=== PATIENT | female | born 1970 | race Two or more races ===

== ENCOUNTER → 2024-01-18 | Outpatient (CLI) | payer OTHER ==
[2024-01-18 11:18] LABS: Basophils # (auto) 0.1 10 ^3/uL (0-0.2); Basophils % (auto) 1.2 % (0.0-2.0); Eosinophils # (auto) 0.1 10 ^3/uL (0-0.8); Eosinophils % (auto) 0.8 % (0.0-7.0); Hematocrit 44.8 % (36.0-46.0); Lymphocytes # (auto) 3.1 10 ^3/uL (0.4-5.4); Lymphocytes % (auto) 44.5 % (10.0-50.0); Mean Corpuscular Hemoglobin 29.6 pg (28.0-32.0); Mean Corpuscular Hgb Conc. 33.5 g/dL (32.0-36.0); Mean Corpuscular Volume 88.4 fL (80.0-100.0); Monocytes # (auto) 0.4 10 ^3/uL (0-1.3); Monocytes % (auto) 5.7 % (0.0-12.0); Neutrophils # (auto) 3.4 10 ^3/uL (1.6-8.6); Neutrophils % (auto) 47.8 % (37.0-80.0); Nucleated Red Blood Cells % 0.1 %; Red Blood Cells 5.06 10^6/uL (4.0-5.20); Red Cell Distribution Width 12.7 % (11.8-14.3)
[2024-01-18 11:28] LABS: Urine Bacteria FEW /hpf (None Seen); Urine Blood Negative /uL (Negative); Urine Clarity Turbid (Clear); Urine Color Yellow (Yellow); Urine Mucus FEW (None Seen); Urine Protein, UAD 1+ (Negative); Urine Specific Gravity 1.047 (1.001-1.035); Urine Urobilinogen Normal (Negative); Urine WBC 35 /hpf (0 - 5); Urine pH 5.5 (5.0-9.0)
[2024-01-18 12:07] LABS: Alanine Aminotransferase 24 U/L (7-40); Alkaline Phosphatase 112 U/L (46-116); Amylase 66 U/L (30-118); Anion Gap 8 (5-15); BUN/Creatinine Ratio 10.3 (10.0-20.0); Blood Urea Nitrogen 7 mg/dL (9-23); Calcium 9.5 mg/dL (8.7-10.4); Carbon Dioxide 25 mmol/L (20-30); Chloride 104 mmol/L (98-107); Glucose 333 mg/dL (74-106); LDL Cholesterol 226 mg/dL (< 100); Potassium 4.2 mmol/L (3.5-5.1); Sodium 137 mmol/L (136-145); Triglycerides 135 mg/dL (< 150)
[2024-01-18 12:08] LABS: Albumin 4.2 g/dL (3.2-4.8); Aspartate Aminotransferase 11 U/L (13-40); Bilirubin, Total 0.7 mg/dL (0.2-1.0); Cholesterol 290 mg/dL (< 200); HDL Cholesterol 62 mg/dL (40-59); Total Protein 7.2 g/dL (5.7-8.2)
[2024-01-18 12:23] LABS: Erythrocyte Sedimentation Rate 13 mm/hr (0-20)
[2024-01-19 08:07] LABS: Complement C3 152 mg/dL (82-167); Rheumatoid Arthritis Factor 10.5 IU/mL (<14.0); Thyroid Peroxidase (TPO) Ab 22 IU/mL (0-34)
[2024-01-19 09:07] LABS: Anti-Nuclear Antibody Direct Negative (Negative); Anti-dsDNA Antibody <1 IU/mL (0-9); Antiscleroderma-70 Antibody <0.2 AI (0.0-0.9); RNP Antibody <0.2 AI (0.0-0.9); Sjogren's Anti-SS-A Antibody <0.2 AI (0.0-0.9); Sjogren's Anti-SS-B Antibody <0.2 AI (0.0-0.9); Smith Antibody <0.2 AI (0.0-0.9)
[2024-01-20 13:08] LABS: Actin (Smooth Muscle) Antibody 5 Units (0-19); Mitochondrial (M2) Antibody <20.0 Units (0.0-20.0)
== END | disposition home or self-care (01) ==
LOC: LAB 10:42
PROVIDERS: ATTEND Internal Medicine
DX: Z12.11 Encounter for screening for malignant neoplasm of colon (principal); R10.9 Unspecified abdominal pain; L93.0 Discoid lupus erythematosus
CPT/HCPCS: 36415; 80053; 80061; 81001; 82150; 83036; 84443; 85025; 85652; 86160; 86225; 86235; 86376; 86431

== ENCOUNTER → 2024-05-16 | Outpatient (CLI) | payer OTHER ==
[~2024-05-16] VITALS: Ht 160 cm; Wt 55.8 kg
[2024-05-16] MEDS: ADENOSINE 47 MG in GIVE UN-DILUTED 0 ML IV ONE (09:26)
--- NOTE | 2024-05-16 12:59 | DVHSR ---
APPROVED REPORT Exam: Nuclear Stress Test Indication: Cardiac Clearance Stress Tech: Rocio Reed BMI: 0 Medical History Medical History: DM, EF 55% Stress Test Details Stress Test: Pharmacological stress testing performed using 47 mg of Adenosine HR Resting HR: 77 bpmMax Heart Rate (APMHR): 164.518247 bpm Max HR Achieved: 101 bpmTarget HR (85% APMHR): 139.107246 bpm % of APMHR: 61.59 Recovery HR: 87 bpm BP Resting BP: 145/72 mmHg Recovery BP: 120/68 mmHg ECG Resting ECG: Sinus Rhythm Clinical Reason for Termination: Completed protocol Stress ECG Conclusion Resting ECG shows normal sinus rhythm. No dynamic EKG changes was noted to suggest ischemia. Resting images shows near homogeneous uptake of radioactive tracer throughout the myocardium without evidence of myocardial infarction. Stress images shows near homogeneous uptake of radioactive tracer throughout the myocardium without e vidence of myocardial ischemia. Well-preserved left ventricular systolic function at 69%. Impression: Negative stress for ischemia, low risk study. NM EXAM: Myocardial Perfusion REST/STRESS Imaging Protocol: Rest Tc-99m/Stress Tc-99m 1 day Resting Data Rest SPECT myocardial perfusion imaging was performed in supine position 60 minutes following the int ravenous injection of 12.3 mCi of Tc-99m Sestamibi. Time of rest injection: 0800 Time of rest imagin Administration Route: IV Administration Site: Right Arm Pharmacologic Stress Pharmacologic stress test was performed by injecting Adenosine mg IV push followed by the intravenou s injection of 30.0 mCi of Tc-99m Sestamibi. Time of stress injection: 0930 Time of stress imagin Administration Route: IV Administration Site: Right Arm Gated Stress SPECT was performed 60 minutes after stress injection. The images were gated to evaluate regional wall motion and calculate left ventricular ejection fracti on. Stress only was performed in the Supine position. Nuclear Conclusion ECG Findings: negative for ischemia Clinical Findings: negative for ischemia Nuclear Findings: negative for ischemia Exercise Capacity: not assessed Left Ventricular Function: normal Risk Study: low Resting ECG shows normal sinus rhythm. No dynamic EKG changes was noted to suggest ischemia. Resting images shows near homogeneous uptake of radioactive tracer throughout the myocardium without evidence of myocardial infarction. Stress images shows near homogeneous uptake of radioactive tracer throughout the myocardium without e vidence of myocardial ischemia. Well-preserved left ventricular systolic function at 69%. Impression: Negative stress for ischemia, low risk study.
== END | disposition home or self-care (01) ==
LOC: XYW 08:09
PROVIDERS: ATTEND Internal Medicine
DX: Z01.810 Encounter for preprocedural cardiovascular examination (principal); E11.36 Type 2 diabetes mellitus with diabetic cataract; E11.65 Type 2 diabetes mellitus with hyperglycemia
CPT/HCPCS: 78452; 93017; A9500; J0153

== ENCOUNTER → 2024-06-19 | Outpatient (CLI) | payer OTHER ==
[2024-06-19 11:41] LABS: Basophils # (auto) 0.1 10 ^3/uL (0-0.2); Basophils % (auto) 0.9 % (0.0-2.0); Eosinophils # (auto) 0 10 ^3/uL (0-0.8); Eosinophils % (auto) 0.4 % (0.0-7.0); Hematocrit 43.1 % (36.0-46.0); Hemoglobin 14.5 g/dL (12.2-16.2); Lymphocytes # (auto) 2.6 10 ^3/uL (0.4-5.4); Lymphocytes % (auto) 31.7 % (10.0-50.0); Mean Corpuscular Hemoglobin 29.9 pg (28.0-32.0); Mean Corpuscular Hgb Conc. 33.6 g/dL (32.0-36.0); Mean Corpuscular Volume 88.9 fL (80.0-100.0); Monocytes # (auto) 0.5 10 ^3/uL (0-1.3); Monocytes % (auto) 6.5 % (0.0-12.0); Neutrophils % (auto) 60.5 % (37.0-80.0); Nucleated Red Blood Cells % 0.1 %; Platelet Count (auto) 347 10^3/uL (140-450); Red Blood Cells 4.85 10^6/uL (4.0-5.20); Red Cell Distribution Width 12.8 % (11.8-14.3); White Blood Cell 8.3 10^3/uL (4.4-10.8)
[2024-06-19 11:58] LABS: INR 1.06 (0.9-1.15); Partial Thromboplastin Time 28.8 SEC (24.5-34.5); Prothrombin Time 11.2 sec (9.3-11.8)
== END | disposition home or self-care (01) ==
LOC: LAB 11:29
PROVIDERS: ATTEND Internal Medicine
DX: R16.0 Hepatomegaly, not elsewhere classified (principal)
CPT/HCPCS: 36415; 85025; 85610; 85730

== ENCOUNTER → 2024-06-21 | Outpatient (CLI) | payer OTHER ==
[~2024-06-21] MED LIST: MIDAZOLAM HCL 2MG/2ML 2ml VIAL (1mg/ml) ONE; fentaNYL CITRATE 100 MCG/2 ML VL ONE
[2024-06-21 09:30] VITALS: BP 121/77
[2024-06-21] MEDS: MIDAZOLAM HCL 2MG/2ML 2ml VIAL (1mg/ml) IV ONE (09:30)
[2024-06-21] MEDS: fentaNYL CITRATE 100 MCG/2 ML VL IV ONE (09:30)
[2024-06-21] MEDS: GELATIN 1 SPONGE SIZE 50 TOP ONE (09:40)
--- NOTE | 2024-07-28 09:29 | DVH ---
CT ABDOMEN WITHOUT CONTRAST INDICATION: Liver mass here for biopsy. EXAM DATE: 06/21/2024 09:45 AM COMPARISON: None RADIATION DOSE: CTDIvol: 5 mGy, DLP: 152 mGy*cm PROCEDURE: Helical CT images were obtained of the abdomen All CT scans at this medical facility are performed using dose modulation techniques as appropriate t o a performed exam including the following: Automated exposure control was utilized; adjustment of th e MA and/or KV according to patient size; and use of iterative reconstruction technique. FINDINGS: The liver mass was in a location which made it difficult to biopsy with increased risks. The is was d isscussed with the patient and the biopsy was not performed. IMPRESSION: Liver mass biopsy was not performed due to central and posterior location with the lung preventing pe rcutaneous access. Recommend follow up imaging.
== END | disposition home or self-care (01) ==
LOC: CT 08:52
PROVIDERS: ATTEND Internal Medicine
DX: R16.0 Hepatomegaly, not elsewhere classified (principal); Z53.8 Procedure and treatment not carried out for other reasons
CPT/HCPCS: 74150; J2250; J3010

== ENCOUNTER → 2025-04-19 | Outpatient (CLI) | payer OTHER ==
[2025-04-19 12:58] LABS: Chloride 105 mmol/L (98-107); Potassium 3.9 mmol/L (3.5-5.1); Sodium 142 mmol/L (136-145)
[2025-04-19 12:59] LABS: Anion Gap 11 (5-15); Calcium 9.1 mg/dL (8.7-10.4); Carbon Dioxide 26 mmol/L (20-31)
[2025-04-19 13:04] LABS: BUN/Creatinine Ratio 15.2 (10.0-20.0); Blood Urea Nitrogen 10 mg/dL (9-23); Glucose 95 mg/dL (74-106); Microalb/Creat Ratio, Urine 13.00
== END | disposition home or self-care (01) ==
LOC: LAB 11:53
PROVIDERS: ATTEND Internal Medicine
DX: E11.9 Type 2 diabetes mellitus without complications (principal)
CPT/HCPCS: 36415; 80048; 82043; 82570